=== PATIENT | male | born 1955 | race Caucasian/White ===

== ENCOUNTER → 2020-10-06 | Outpatient (CLI) | payer MEDICARE, OTHER ==
[~2020-10-06] MED LIST: ATORVASTATIN CA80 MG PO; CARAFATE1 GM PO; CLOPIDOGREL75 MG PO; CYCLOBENZAPRINE10 MG PO; FERROUS SULFAT325 M2 PO; FLOMAX 0.4 MG0.4 MG PO; GLUCOPHAGE XR500 M1 PO; LANTUS SOL100 UNIT/1 SQ; LEVOTHYROXINE25 MCG PO; LISINOPRIL-HCT1 EAC1 PO; LOVENOX30 MG/0.3 SQ; MELOXICAM15 MG PO; PANTOPRAZOLE SO40 MG PO; PEPCID20 MG PO; PERCOCET 10-321 EACH PO; VICTOZA 3-0.6 MG/0.1 SQ; ZOFRAN ODT 4 MG4 MG SL
== END ==
LOC: HEART 5 14:39
DX: R00.2 Palpitations (principal); I49.1 Atrial premature depolarization; I49.3 Ventricular premature depolarization